=== PATIENT | female | born 1965 | race Caucasian/White ===

== ENCOUNTER 2019-08-03 17:16 | Emergency (ER) | payer MEDICARE ==
--- NOTE | 2019-08-03 17:50 | ED.PDOC ---
History of Present Illness - General Time Seen by Provider: 08/03/19 17:47 Source: patient Additional Information: 53yo F presents for palm laceration. She was helping a friend with a trailer hitch and caught her hand. She reports normal range of motion. She is not UTD on tetanus. No other reported issues. - History of Present Illness Allergies/Adverse Reactions: Allergies NO KNOWN ALLERGY Allergy (Verified 08/03/19 19:14) Home Medications: Ambulatory Orders Amlodipine Besylate 10 mg PO DAILY 08/03/19 Cephalexin Monohydrate [Keflex] 500 mg PO TID #21 cap 08/03/19 Pantoprazole Sodium 40 mg PO DAILY 08/03/19 Review of Systems - Review of Systems Respiratory: States: no symptoms reported Cardiology: States: no symptoms reported Musculoskeletal: Denies: joint pain, joint swelling Skin: States: other - laceration. Denies: change in color Neurological: Denies: numbness, weakness Family Medical History - Family History Mother Family History: No Known Living Status: Still Living Physical Exam - Physical Exam General Appearance: Alert, No apparent distress Cardiovascular/Respiratory: regular rate, rhythm, normal peripheral pulses Hand Exam: laceration - 3.5 cm elipitcal flap laceration to the palm. Neuro/Tendon: normal sensation, normal motor functions, normal tendon functions Mental Status: alert, oriented x 3 Skin Exam: normal color, warm/dry Progress - Progress Progress: 08/03/19 19:50 Laceration repaired without complication. Will cover with abx given potential contamination from trailer hitch. Results discussed with patient. NV intact. Return warnings given. Sutures out in 10 days. Procedures - Laceration/Wound Repair Right Hand Wound Length (cm): 3.5 Wound's Depth, Shape: flap Wound Explored: clean Irrigated w/ Saline (cc's): 500 Anesthesia: 1% Lidocaine Wound Debrided: minimal Wound Repaired With: sutures Suture Size/Type: 4:0 Number of Sutures: 9 Layer Closure?: No Sterile Dressing Applied?: Yes Splint Applied?: No Progress: Tolerated well without complication Departure - Departure Clinical Impression: Laceration of hand Qualifiers: Encounter type: initial encounter Foreign body presence: without foreign body Laterality: right Qualified Code(s): S61.411A - Laceration without foreign body of right hand, initial encounter Time of Disposition: 19:53 Disposition: Discharge to Home or Self Care Condition: Good Instructions: DI for Laceration Repair Referrals: UNKNOWN,PHYSICIAN [Primary Care Provider] - 1-2 Weeks Prescriptions: Cephalexin Monohydrate [Keflex] 500 mg PO TID #21 cap Home Medications: Ambulatory Orders Amlodipine Besylate 10 mg PO DAILY 08/03/19 Cephalexin Monohydrate [Keflex] 500 mg PO TID #21 cap 08/03/19 Pantoprazole Sodium 40 mg PO DAILY 08/03/19 Additional Instructions: Sutures out in 10 days.
[2019-08-03] MEDS ORDERED: TETANUS,DIPHTHERIA,PERTUSSIS 1 EA SYG IM ONE (17:51)
[2019-08-03] MEDS ORDERED: LIDOCAINE 1% 10 ML VIAL INJ ONE (17:51)
[2019-08-03] MEDS ORDERED: CEPHALEXIN MONOHYDRATE 500 MG CAP PO ONE (19:47)
[2019-08-03] MEDS ORDERED: NEOMYCIN-BACITRACIN-POLYMYXIN 0.9 GM UD TOP ONE (20:09)
[2019-08-03 20:41] VITALS: TEMP 98.4
[2019-08-03 21:18] VITALS: BP 147/88; O2SAT 99
== END 2019-08-03 20:18 | disposition home or self-care (01) ==
LOC: ER 17:16
DX: S61.411A Laceration without foreign body of right hand, initial encounter (principal); W23.0XXA Caught, crushed, jammed, or pinched between moving objects, initial encounter; Y93.89 Activity, other specified; Y92.9 Unspecified place or not applicable